=== PATIENT | male | born 1980 | race Caucasian/White ===

== ENCOUNTER 2017-03-30 13:46 | Emergency (ER) | payer OTHER ==
[2017-03-30 13:57] VITALS: BP 126/90; RESP 18; TEMP 98.2; O2SAT 96
[2017-03-30 13:58] VITALS: BMI 30.7
[2017-03-30] MEDS ORDERED: Sodium Chloride 0.9% 1,000 ML IV STA ×2 (14:18→15:29)
--- NOTE | 2017-03-30 14:22 | ED PDOC ---
HPI: Abdomen Time Seen by Provider: 03/30/17 14:19 Chief Complaint (Nursing): GI Problem Chief Complaint (Provider): abdominal pain History Per: Patient, Family (36 y/o male here with vomiting/epigastric discomfort since 2 am. Notes toiletbowl pink and "dark material" in emesis. states food consumed prior was from outdoors and with possible food dye. Patient admits alcohol use prior to vomiting. No fevers or chills. Deneis any diarrhea. No h/o abdominal surgeries.) Past Medical History Reviewed: Historical Data, Nursing Documentation, Vital Signs Vital Signs: Last Vital Signs Temp 98.2 F 03/30/17 13:53 Pulse 103 H 03/30/17 13:53 Resp 18 03/30/17 13:53 BP 126/90 03/30/17 13:53 Pulse Ox 96 03/30/17 14:23 - Family History Family History: States: No Known Family Hx - Home Medications Home Medications: Ambulatory Orders Medication Instructions Recorded Famotidine [Pepcid] 20 mg PO BID #10 tab 03/30/17 Ondansetron [Zofran Odt] 4 mg PO Q8 PRN #8 odt 03/30/17 - Allergies Allergies/Adverse Reactions: Allergies Allergy/AdvReac Type Severity Reaction Status Date / Time No Known Allergies Allergy Verified 03/30/17 13:58 Review of Systems ROS Statement: Except As Marked, All Systems Reviewed And Found Negative Physical Exam - Reviewed Nursing Documentation Reviewed: Yes Vital Signs Reviewed: Yes - Physical Exam Appears: Positive for: Well, Non-toxic, No Acute Distress Head Exam: Positive for: ATRAUMATIC, NORMAL INSPECTION, NORMOCEPHALIC Skin: Positive for: Normal Color, Warm, DRY Eye Exam: Positive for: EOMI, Normal appearance, PERRL ENT: Positive for: Normal ENT Inspection Neck: Positive for: Normal, Painless ROM Cardiovascular/Chest: Positive for: Regular Rate, Rhythm Respiratory: Positive for: CNT, Normal Breath Sounds Gastrointestinal/Abdominal: Positive for: Normal Exam, Bowel Sounds, Soft Back: Positive for: Normal Inspection Rectal: Positive for: Other (brown stool; guiac negative) Extremity: Positive for: Normal ROM Neurologic/Psych: Positive for: Alert, Oriented - Laboratory Results Result Diagrams: 03/30/17 15:00 03/30/17 15:00 - ECG O2 Sat by Pulse Oximetry: 96 - Progress ED Course And Treament: EKG: NSR 85bpm; no ectopy; no acute changes at 13:53 Pepcid 20 mg iv x 1 dose; Zofran 8mg iv x 1 dose; NS 1 liter wide open Disposition - Clinical Impression Clinical Impression: Gastritis - Patient ED Disposition Is Patient to be Admitted: No - Disposition Disposition: Routine/Home Disposition Time: 17:17 Condition: FAIR Prescriptions: Famotidine [Pepcid] 20 mg PO BID #10 tab Ondansetron [Zofran Odt] 4 mg PO Q8 PRN #8 odt PRN Reason: Nausea/Vomiting Instructions: Gastritis (DC) Forms: [facility] ED School/Work Excuse
[2017-03-30 15:31] LABS: BASO % 0.4 % (0.0-2.0); EOS # 0.1 K/uL (0.0-0.7); EOS % 0.6 % (0.0-4.0); HEMATOCRIT 47.6 % (35.0-51.0); LYMPH # 0.9 K/uL (1.0-4.3); LYMPH % 9.2 % (20.0-40.0); MEAN CELL VOLUME 88.3 fl (80.0-94.0); MEAN CORPUSCULAR HEMOGLOBIN 29.9 pg (27.0-31.0); MEAN CORPUSCULAR HGB CONC 33.8 g/dL (33.0-37.0); MONO # 0.5 K/uL (0.0-0.8); MONO % 5.2 % (0.0-10.0); NEUT # 8.4 K/uL (1.8-7.0); NEUT % 84.6 % (50.0-75.0); NRBC % 0.1 % (0.0-0.0); PLATELET COUNT 208 K/uL (130-400); RED CELL DISTRIBUTION WIDTH 13.1 % (11.5-14.5); WHITE BLOOD COUNT 9.9 K/uL (4.8-10.8)
[2017-03-30 15:47] LABS: ALB/GLOB RATIO 1.3 (1.0-2.1); ALKALINE PHOSPHATASE 56 U/L (38-126); ALT/SGPT 46 U/L (21-72); AST/SGOT 28 U/L (17-59); BILIRUBIN,TOTAL 0.8 mg/dl (0.2-1.3); BLOOD UREA NITROGEN 16 mg/dl (9-20); CALCIUM 9.4 mg/dL (8.4-10.2); CARBON DIOXIDE 28 mmol/L (22-30); CHLORIDE 102 mmol/L (98-107); GFR AFRICAN-AMERICAN > 60; GLUCOSE,RANDOM 97 mg/dL (75-110); LIPASE 31 U/L (23-300); POTASSIUM 3.8 MMOL/L (3.6-5.0); SODIUM 141 mmol/l (132-148); TOTAL PROTEIN 7.6 G/DL (6.3-8.2)
[2017-03-30 16:47] LABS: URINE BILIRUBIN NEGATIVE (NEGATIVE); URINE BLOOD NEGATIVE (NEGATIVE); URINE COLOR YELLOW (YELLOW); URINE GLUCOSE (UA) NEG (Normal); URINE KETONE NEGATIVE (NEGATIVE); URINE LEUKOCYTE ESTERASE NEG Leu/uL (Negative); URINE PROTEIN 30 mg/dL (NEGATIVE); URINE UROBILINOGEN 0.2-1.0 mg/dL (0.2-1.0); WBC URINE < 1 /hpf (0-5)
[2017-03-30 17:29] LABS: NEUTROPHIL 90 % (42-75); TOTAL CELLS COUNTED 100
[2017-03-30 17:30] LABS: LARGE PLATELETS PRESENT
[2017-03-30 17:32] VITALS: PULSE 88
--- NOTE | 2017-03-31 10:03 | CARD ---
APPROVED REPORT EKG Measurement Heart [id number] <Conclusion> Normal sinus rhythm Normal ECG
== END 2017-03-30 17:31 | disposition home or self-care (01) ==
LOC: H.ER 13:46
DX: K29.70 Gastritis, unspecified, without bleeding (principal)